=== PATIENT | male | born 1985 | race Caucasian/White ===

== ENCOUNTER → 2021-12-10 12:35 | Outpatient (BNVA) | payer BC, SELFPAY | PROVIDERS: Family Provider Nurse Practitioner; PCP Nurse Practitioner Family; Visit Provider Nurse Practitioner Family | DX: Z00.00 Encounter for general adult medical examination without abnormal findings (principal); Z68.24 Body mass index [BMI] 24.0-24.9, adult | CPT/HCPCS: 80053; 80061; 81000; 82306; 83036; 84443; 85025 ==

== ENCOUNTER → 2024-01-20 15:22 | Outpatient (BNVA) | payer BC, SELFPAY | PROVIDERS: Family Provider Nurse Practitioner; PCP Nurse Practitioner Family; Visit Provider Nurse Practitioner Family | DX: Z13.6 Encounter for screening for cardiovascular disorders (principal); B35.3 Tinea pedis | CPT/HCPCS: 80053; 80061; 85025 ==